=== PATIENT | female | born 1985 | race Caucasian/White ===

== ENCOUNTER → 2016-09-02 | Outpatient (CLI) | payer OTHER ==
--- NOTE | 2016-09-02 09:25 | RAD ---
Indication: Biliary anomaly. No prior studies are available for comparison. The pancreas is poorly visualized. The aorta appears nonaneurysmal. IVC is unremarkable. The liver is normal in size. No discrete liver mass is detected. No gallstones or sludge are identified. No wall thickening or pericholecystic fluid is seen. No biliary ductal dilatation is identified. The spleen is unremarkable. The kidneys are unremarkable. There is no ascites. Impression: Essentially unremarkable abdominal ultrasound.
== END | disposition home or self-care (01) ==
LOC: US 06:26
PROVIDERS: ATTEND Internal Medicine Hematology & Oncology
DX: Q44.5 Other congenital malformations of bile ducts (principal)
CPT/HCPCS: 76700